=== PATIENT | male | born 2000 | race Caucasian/White ===

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

== ENCOUNTER 2021-06-27 15:05 | Emergency (ER) | payer OTHER, SELFPAY ==
[2021-06-27 15:17] VITALS: BP 141/86; PULSE 100; RESP 16; TEMP 36.2; O2SAT 97
[2021-06-27 17:09] VITALS: PULSE 71; RESP 18; O2SAT 99
[2021-06-27] MEDS: ONDANSETRON HCL ODT 4 MG TABLET (17:48)
--- NOTE | 2021-06-27 18:22 | ED.GENADULT ---
HPI - General Adult General Chief complaint: Skin/Abscess/Foreign Body Stated complaint: finger pain Time Seen by Provider: 06/27/21 16:25 Source: patient Mode of arrival: ambulatory Limitations: no limitations History of Present Illness HPI narrative: Patient presents for evaluation of pain and swelling to the second digit of the right hand for the last 2 days. He denies any recent identified precipitating cause or injury. Pain is constant, 10/10, throbbing. He denies any fever, chills, nausea, vomiting, drainage from the affected area. He is not diabetic. He does smoke. He is right hand dominant. He applied hydrogen peroxide without considerable improvement in his symptoms thereafter. Date of last tetanus unknown. Since arriving here he notes a red streak moving up his arm. No additional complaints or concerns. Related Data Allergies Allergy/AdvReac Type Severity Reaction Status Date / Time No Known Allergies Allergy Mild Verified 06/27/21 15:17 Review of Systems Review of Systems: CONSTITUTIONAL: Denies fever, chills, or sweats. EYES: Denies visual changes, redness, or discharge. ENT: Denies rhinorrhea, congestion, sore throat, or otalgia. CARDIOVASCULAR: Denies chest pain, palpitations, or edema. RESPIRATORY: Denies cough or dyspnea. GASTROINTESTINAL: Denies abdominal pain, nausea, vomiting, or diarrhea. GENITOURINARY: Denies dysuria or hematuria. SKIN: Reports redness to 2nd digit of right hand MUSCULOSKELETAL: Reports pain in second digit of right hand. Denies back pain NEUROLOGIC: Denies headache, numbness, dizziness, or weakness. PSYCHIATRIC: Denies anxiety or depression. [facility] Past Medical History Medical History Patient denies medical problems Surgical History Surgical History No pertinent past surgical history Family History Family History Grandparent Family history non-contributory Social History Social History Smoking packs per day: 0.2 Smoking cigarettes per day: 4.0 Smoking status: Current every day smoker Alcohol intake: current Substance use: current Substance use type: marijuana Living arrangements: with family Gender identity (if verbalized by the patient): Male Spiritual care concerns: No Exam Narrative: GENERAL: Well-appearing, well-nourished, and in no acute distress. HEAD: Normocephalic, atraumatic. EYES: PERRLA and EOMI. ENT: Nares clear, no rhinorrhea or epistaxis. Mucous membranes moist. Oropharynx without tonsillar hypertrophy exudate or other lesions. Bilateral TMs pearly tyson nonbulging NECK: Supple. No adenopathy or masses. No carotid bruits or JVD CHEST: Clear to auscultation. No respiratory distress. No wheezes rales or rhonchi HEART: Regular rate and rhythm. No murmur heard. Normal peripheral pulses. ABDOMEN: Soft, nontender, nondistended, normal active bowel sounds. EXTREMITIES: Normal range of motion. There is soft tissue swelling to the second digit of the right hand SKIN: There is erythema to the distal phalanx of the second digit of the right hand surrounding the nail plate with yellow pigmentation noted to the nail plate NEURO: No focal deficits. Alert and oriented x3. PSYCH: Normal mood and affect. Course Course Emergency Course: This is a 21-year-old male who presented with complaints of pain and swelling in the second digit of his right hand. His exam was consistent with paronychia. Provided him with a digital block and attempted to drain this. He became nauseous and dizzy. Blood pressure drop to the 80s over 40s. He refused IV placement. He was given oral hydration. Blood pressure normalized. This appeared to be a vasovagal response. I was able to use a 18g needle to form a small hole in nailplate an
[2021-06-27] MEDS: CEPHALEXIN 500 MG CAPSULE PO (18:30)
[2021-06-27] MEDS: HYDROcodone/acetaminophen (*CRX) 5-325 MG TABLET 2 TAB (18:30)
[2021-06-27] MEDS: TETANUS,DIPHTHERIA,AC PERTUSSIS ADULT (0.5 ML) BOOSTRIX IM (18:31)
== END 2021-06-27 18:41 | disposition home or self-care (01) ==
PROVIDERS: Emergency Provider Nurse Practitioner
DX: S60.121A Contusion of right index finger with damage to nail, initial encounter (principal); L03.011 Cellulitis of right finger; Z23 Encounter for immunization; F17.210 Nicotine dependence, cigarettes, uncomplicated; X58.XXXA Exposure to other specified factors, initial encounter
CPT/HCPCS: 10160; 87070; 87147; 87186; 87205; 90471; 90715; 99283; A9270